=== PATIENT | male | born 1965 | race Asian ===

== ENCOUNTER 2024-10-01 17:41 | Emergency (ER) | payer BC, OTHER ==
[~2024-10-01] VITALS: Ht 188 cm; Wt 100.0 kg
[2024-10-01 17:55] VITALS: TEMP 97.9
[2024-10-01] MEDS: METHOCARBAMOL 500 MG TABLET PO ONE (18:52)
[2024-10-01] MEDS: KETOROLAC TROMETHAMINE 30 MG/ML VIAL IM ONE (18:53)
[2024-10-01 19:46] VITALS: BP 116/76; PULSE 73; RESP 18; O2SAT 96
[2024-10-01] MEDS ORDERED: METH-812 PO (19:58)
[2024-10-01] MEDS ORDERED: IBUP-1492 PO (19:58)
== END 2024-10-01 20:19 | disposition home or self-care (01) ==
LOC: EMS 17:44
DX: S16.1XXA Strain of muscle, fascia and tendon at neck level, initial encounter (principal); V43.52XA Car driver injured in collision with other type car in traffic accident, initial encounter; Y93.89 Activity, other specified; Y92.410 Unspecified street and highway as the place of occurrence of the external cause; Y99.8 Other external cause status
CPT/HCPCS: 99283; 96372; J1885